=== PATIENT | female | born 2000 | race Caucasian/White ===

== ENCOUNTER 2019-07-21 15:57 | Emergency (ER) | payer SELFPAY ==
[~2019-07-21] VITALS: Ht 162.6 cm; Wt 92.7 kg
[2019-07-21 16:04] VITALS: TEMP 98.4
[2019-07-21 17:22] VITALS: BP 132/97; PULSE 105
== END 2019-07-21 17:22 | disposition home or self-care (01) ==
LOC: COL.ER 15:57
PROC: 2W3QX1Z Immobilization of Right Lower Leg using Splint (ICD-10-PCS; principal; 2019-07-21)
DX: S82.891A Other fracture of right lower leg, initial encounter for closed fracture (principal); W18.42XA Slipping, tripping and stumbling without falling due to stepping into hole or opening, initial encounter; Y92.098 Other place in other non-institutional residence as the place of occurrence of the external cause
CPT/HCPCS: Q4045